=== PATIENT | female | born 1995 | race Caucasian/White ===

== ENCOUNTER 2024-10-28 16:06 | Emergency (ER) | payer OTHER, SELFPAY ==
--- NOTE | 2024-10-28 16:12 | DI.RAD.S_ITS ---
PROCEDURE: XR CHEST 1V INDICATIONS: chest pain TECHNIQUE: One view of the chest was acquired. COMPARISON: None. FINDINGS: Surgical changes and devices: None. Lungs and pleura: Lungs are clear. No pleural effusions or pneumothorax. Mediastinum: Mediastinal contours appear normal. Heart size is normal. Bones and chest wall: No suspicious bony lesions. Overlying soft tissues appear unremarkable. IMPRESSION: No acute cardiopulmonary abnormality is seen. Dictated by: Paul Jordan M.D. on 10/28/2024 at 16:55 Approved by: Paul oJrdan M.D. on 10/28/2024 at 16:56
--- NOTE | 2024-10-28 16:17 | ED_ITS ---
HPI - General Adult <Ashley Workman MD - Last Filed: 11/01/24 07:18> General Chief complaint: Chest Pain Stated complaint: back and chest px Time Seen by Provider: 10/28/24 16:17 History of Present Illness HPI narrative: 29-year-old woman with a history of thyroiditis for which she is on Levothyroid presents with multiple concerns including weakness, syncopal episodes, recurrent episodes of vertigo, persistent adenopathy cervical inguinal and on physical exam today axillary left greater than right. She describes up to 10 lb of fluctuation in weight both up and down over the last number of months. Currently does not use hormonal control is on approximately day 14 of her cycle, she and her use condoms. She notes that she has been more fatigued she complains of dry lips and recently was noticing splint or hemorrhages in her fingers and toes. She saw a manager credit risk who evaluated the splinter hemorrhages in suggested an ER visit. There is no recreational drug use no history of IV drug use she takes no prescription medications. She does not describe dysuria or bowel changes. Last week she was diagnosed with respiratory syncytial virus and is beginning to notice a slight cough. She complains of pain in the left side of her chest that radiates centrally through to her scapula but seems to be worse with movement and deep breathing. About a week ago with complaints of syncope episodes and vertigo she was given 3 L of fluid and then the following day found that she would gained 13 lb with significant edema which then required Lasix. The fact that an otherwise healthy 29-year-old woman can not easily process 3 L of fluid is somewhat concerning. Other than the recent/current diagnosis of RSV she has not had obvious infectious symptoms recently no recent viruses. She has not noting significant abdominal pain Review of Systems <Ashley Workman MD - Last Filed: 11/01/24 07:18> Review of Systems Narrative: Pertinent positive and negative findings as per HPI Patient History <Ashley Workman MD - Last Filed: 11/01/24 07:18> Medical History Thyroiditis Exam <Ashley Workman MD - Last Filed: 11/01/24 07:18> Initial Vital Signs Initial Vital Signs: Vital Signs Pulse Rate 79 10/28/24 16:35 Blood Pressure 119/80 10/28/24 16:35 Pulse Oximetry 100 10/28/24 16:35 General: Healthy appearing, in no acute distress. Able to give a complete and coherent history. Well-nourished well-developed HEENT: Moist mucous membranes, normal sclera with reactive pupils, Neck: Small lymph node appreciated the right angle of the jaw, firm but nontender, adenopathy in the left axillae, bilateral inguinal adenopathy Respiratory: Lungs are clear to auscultation, no wheezing no rales no rhonchi. Full and symmetrical air movement Cardiac: Regular rate and rhythm no murmurs with careful auscultation Abdomen: Soft, mild tenderness in the epigastrium radiating through back to her scapula. Good bowel tones, no flank pain Skin: Warm and dry, no rashes Neurologic: Grossly neurologically intact with no obvious asymmetries or abnormalities Extremities: No trauma, she does have a distal splinter hemorrhage the left ring finger and some minor nail bed irregularities on a couple other fingers and a toenail. She does not have any other distal sequelae of embolic disease Psych: Cooperative, appropriate insight and affect <Wagner Ruby MD - Last Filed: 10/29/24 05:34> Initial Vital Signs Initial Vital Signs: Vital Signs Pulse Rate 79 10/28/24 16:35 Blood Pressure 119/80 10/28/24 16:35 Pulse Oximetry 100 10/28/24 16:35 Course <Ashley Workman MD - Last Filed: 11/01/24 07:18> Orders Ordered: Discontinued Medications Aspirin (Aspirin 81 Mg Chew Tab) 324 mg PO NOW ONE Stop: 10/28/24 16:13 Last Admin: 10/28/24 16:57 Dose: Not Given Documented By: AI Vital Signs Vital signs: Vital Signs - 8 hr 10/28/24 16:35 10/28/24 16:40 10/28/24 16:43 Temperature 98.5 F Pulse Rate 79 70 80 Respiratory Rate 20 18 Blood Pressure 119/80 115/75 119/80 Pulse Oximetry 100 100 100 Oxygen Delivery Method Room Air 10/28/24 17:00 Temperature Pulse Rate 86 Respiratory Rate 16 Blood Pressure 116/76 Pulse Oximetry 96 Oxygen Delivery Method <Wagner Ruby MD - Last Filed: 10/29/24 05:34> Orders Ordered: Discontinued Medications Aspirin (Aspirin 81 Mg Chew Tab) 324 mg PO NOW ONE Stop: 10/28/24 16:13 Last Admin: 10/28/24 16:57 Dose: Not Given Documented By: HAFSA Vital Signs Vital signs: Vital Signs - 8 hr 10/28/24 16:35 10/28/24 16:40 10/28/24 16:43 Temperature 98.5 F Pulse Rate 79 70 80 Respiratory Rate 20 18 Blood Pressure 119/80 115/75 119/80 Pulse Oximetry 100 100 100 Oxygen Delivery Method Room Air 10/28/24 17:00 Temperature Pulse Rate 86 Respiratory Rate 16 Blood Pressure 116/76 Pulse Oximetry 96 Oxygen Delivery Method Medical Decision Making <Ashley Workman MD - Last Filed: 11/01/24 07:18> Lab Data 10/28/24 16:26 10/28/24 16:26 Labs: Lab Results 10/28/24 Range/Units 16:26 WBC 7.0 (4.5-11.0) X10^3/uL RBC 4.62 (4.0-5.2) X10^6/uL Hgb 13.9 (12.0-16.0) g/dL Hct 40.2 (36-46) % MCV 87.1 (80-100) fL MCH 30.2 (26-34) PG MCHC 34.7 (30-36) % RDW 12.6 (11.6-14.8) % Plt Count 279 (150-400) X10^3/uL Neut % (Auto) 57.5 (50-75) % Lymph % (Auto) 35.3 (25-40) % [place] % (Auto) 5.3 (3-14) % Eos % (Auto) 1.1 L (2-4) % Baso % (Auto) 0.8 (0-2) % Neut # (Auto) 4000 (5592-1808) /uL Lymph # (Auto) 2500 (2932-7724) /uL [place] # (Auto) 400 (0-900) /uL Eos # (Auto) 100 (0-450) /uL Baso # (Auto) 100 (0-100) /uL PT 12.1 (9.4-12.5) SECONDS INR 1.1 (0.9-1.3) APTT 38 H (25.1-36.5) SECONDS Sodium 139 (137-145) mmol/L Potassium 4.2 (3.4-5.1) mmol/L Chloride 103 (98-107) mmol/L Carbon Dioxide 26 (22-32) mmol/L BUN 10 (7-17) mg/dL Creatinine 0.68 (0.52-1.04) mg/dL Estimated GFR > 60 (>60) mL/min BUN/Creatinine Ratio 14.7 (6-22) Glucose 96 (70-100) mg/dL Calcium 9.5 (8.4-10.2) mg/dL Magnesium 1.7 (1.6-2.3) mg/dL Total Bilirubin 0.7 (0.2-1.3) mg/dL AST 42 H (14-36) IU/L ALT 36 H (<35) IU/L Alkaline Phosphatase 48 (38-126) U/L Total Creatine Kinase 57 (30-135) U/L Troponin I < 0.012 (0.01-0.034) ng/mL NT-Pro-B Natriuret Pep < 20 (<125) pg/mL Total Protein 8.2 (6.3-8.2) g/dL Albumin 4.8 (3.5-5.0) g/dL Globulin 3.4 (1.7-4.1) g/dL Albumin/Globulin Ratio 1.4 (1.0-2.8) Lipase 153 (23-300) U/L HIV 1&2 Ab/P24 Ag 4thGn Negative (NEGATIVE) Point of Care Testing Test Results Negative Point of care testing: Point of Care Testing Test Results Negative MDM Narrative Medical decision making narrative: CC: Adenopathy, splinter hemorrhages, central chest pain Complicating co-morbidities: Recently diagnosed with RSV, last week was having significant episodes of weakness, night sweats, vertigo and had 2 syncopal episodes Data collected from: patient Social determinants of health that may influence the patients condition: Patient does live in [place] Medical records reviewed: Medical records is are mostly through [place] I do not have immediate access. She states that she recently had an ultrasound of a cervical lymph node that is suggested that it may be somewhat larger in size but was not obviously pathologic. She was recently diagnosed with Graves disease in his doing well with Synthroid and TSH was slightly elevated but T4 was appropriate last week. She did have a negative urine and did test positive for RSV approximately 4 days ago. Differential considered: Viral symptom, neoplastic process, I doubt HIV, doubt endocarditis doubt cardiomyopathy doubt significant renal or electrolyte abnormalities Exam documented above, pertinent findings include: Patient is alert and appropriate. She does have minor cervical adenopathy right greater than left, mild axillary adenopathy [id number] and bilateral mild groin adenopathy Lab Test results independently reviewed as above. Pertinent findings: CBC is unremarkable with differential appropriate Metabolic panel shows slightly elevated AST and ALT Independently reviewed EKG: EKG shows a rate of 75 no acute ischemia, sinus rhythm Imaging studies independently reviewed: Chest x-ray is unremarkable In long discussion with the patient and with shared decision-making, we have decided to go ahead with a CT scan of the chest abdomen and pelvis because of the adenopathy, night sweats and weight changes Discussion: 29-year-old woman with increasing symptoms for the last 4-5 months. Diagnosed with Konstantin's thyroiditis. Concerned about adenopathy, night sweats but then diagnosed with RSV this week. She will have dramatic episodes of weight increase in decrease. Last week she was having significant vertiginous and syncopal episodes and then had a seemingly inappropriate response with the acute fluid sequestration after a 3 L bolus of fluid in the setting of mild dehydration. She is concerned that she is not being heard in the she does have a more significant underlying diagnosis and points to the fact that she had to argue significantly to finally get to the diagnosis of her Konstantin's thyroiditis. Care is turned over to Dr. Ruby at change of shift. Presumably the CT scan will be unremarkable and patient will be discharged home. If intervention is needed he will assume care and continue to direct the process. This finding is discussed with the patient and she is aware of the care handoff <Wagner Ruby MD - Last Filed: 10/29/24 05:34> Lab Data Labs: Lab Results 10/28/24 Range/Units 16:26 WBC 7.0 (4.5-11.0) X10^3/uL RBC 4.62 (4.0-5.2) X10^6/uL Hgb 13.9 (12.0-16.0) g/dL Hct 40.2 (36-46) % MCV 87.1 (80-100) fL MCH 30.2 (26-34) PG MCHC 34.7 (30-36) % RDW 12.6 (11.6-14.8) % Plt Count 279 (150-400) X10^3/uL Neut % (Auto) 57.5 (50-75) % Lymph % (Auto) 35.3 (25-40) % [place] % (Auto) 5.3 (3-14) % Eos % (Auto) 1.1 L (2-4) % Baso % (Auto) 0.8 (0-2) % Neut # (Auto) 4000 (3770-0916) /uL Lymph # (Auto) 2500 (1477-8336) /uL [place] # (Auto) 400 (0-900) /uL Eos # (Auto) 100 (0-450) /uL Baso # (Auto) 100 (0-100) /uL PT 12.1 (9.4-12.5) SECONDS INR 1.1 (0.9-1.3) APTT 38 H (25.1-36.5) SECONDS Sodium 139 (137-145) mmol/L Potassium 4.2 (3.4-5.1) mmol/L Chloride 103 (98-107) mmol/L Carbon Dioxide 26 (22-32) mmol/L BUN 10 (7-17) mg/dL Creatinine 0.68 (0.52-1.04) mg/dL Estimated GFR > 60 (>60) mL/min BUN/Creatinine Ratio 14.7 (6-22) Glucose 96 (70-100) mg/dL Calcium 9.5 (8.4-10.2) mg/dL Magnesium 1.7 (1.6-2.3) mg/dL Total Bilirubin 0.7 (0.2-1.3) mg/dL AST 42 H (14-36) IU/L ALT 36 H (<35) IU/L Alkaline Phosphatase 48 (38-126) U/L Total Creatine Kinase 57 (30-135) U/L Troponin I < 0.012 (0.01-0.034) ng/mL NT-Pro-B Natriuret Pep < 20 (<125) pg/mL Total Protein 8.2 (6.3-8.2) g/dL Albumin 4.8 (3.5-5.0) g/dL Globulin 3.4 (1.7-4.1) g/dL Albumin/Globulin Ratio 1.4 (1.0-2.8) Lipase 153 (23-300) U/L HIV 1&2 Ab/P24 Ag 4thGn Negative (NEGATIVE) Point of Care Testing Test Results Negative Point of care testing: Point of Care Testing Test Results Negative Imaging Data CT chest abdomen and pelvis with IV contrast: Radiologist's Impression: [address] [address] [address] Scan Report Signed Patient: Marva Barajas MR#: [id number] : 1995 Acct:[id number] Age/Sex: 29 / F Date of Service: 10/28/24 Loc: ED Accession Number: [id number] Procedure: CT chest abd pel w con Ordering Provider: Ashley Workman MD PROCEDURE: CT CHEST ABD PEL W CON INDICATIONS: adenopathy, night sweats, weight changes TECHNIQUE: After the administration of intravenous contrast, 5 mm thick sections acquired from the lung apices to the symphysis. 5 mm coronal and sagittal reformats were performed, with additional 7 mm MIP reformats through the lungs. For radiation dose reduction, the following was used: automated exposure control, adjustment of mA and/or kV according to patient size. COMPARISON: [facility], CR, XR CHEST 1V, 10/28/2024, 16:11. FINDINGS: Image quality: Excellent. CHEST: Lower Neck: No enlarged lymph nodes. Thyroid: No thyroid nodules which require sonographic follow up, per consensus guidelines. Axillae: No enlarged lymph nodes. Chest Wall: Unremarkable. Lungs and Pleura: No pneumothorax or pleural effusions. No consolidation or suspicious nodules. Heart: Heart size is normal. No pericardial effusion. Thoracic Vessels: The aorta and pulmonary arteries demonstrate normal size. Mediastinum and Yamila: No enlarged lymph nodes. Esophagus: No wall thickening. No hiatal hernia. ABDOMEN: Liver: No solid mass. Gallbladder: No radiopaque gallstones or wall thickening. Biliary ducts: No biliary dilation. Pancreas: No ductal dilation. Spleen: Size is within normal limits. Adrenal Glands: No adrenal nodules. Kidneys and Ureters: No hydronephrosis. No solid mass. No complex renal cystic lesion which requires follow up. Stomach and Bowel: Multiple fluid-filled nondilated loops of small bowel are seen throughout the abdomen and pelvis. Mild colonic stool. Appendix is normal. Peritoneum: No abnormal intraperitoneal fluid. No free air. Ventral Wall: No significant ventral hernia. Abdominal Nodes: No retroperitoneal or mesenteric adenopathy by size criteria. Vessels: Aorta and inferior vena cava are normal in size. PELVIS: Pelvic Organs: Anteverted uterus. Bladder: No bladder wall thickening, accounting for underdistention. Pelvic Nodes: No enlarged lymph nodes. Miscellaneous: No inguinal hernias are seen. Bones: No aggressive osseous abnormality. IMPRESSION: Nondistended fluid-filled loops of small bowel throughout the central abdomen is nonspecific but can be seen in setting of enteritis. Otherwise, no acute abnormality identified in the chest, abdomen, or pelvis. Approved by: Brian Ridley M.D. on 10/28/2024 at 18:24 MDM Narrative Medical decision making narrative: CC: Adenopathy, splinter hemorrhages, central chest pain Complicating co-morbidities: Recently diagnosed with RSV, last week was having significant episodes of weakness, night sweats, vertigo and had 2 syncopal episodes Data collected from: patient Social determinants of health that may influence the patients condition: Patient does live in [place] Medical records reviewed: Medical records is are mostly through [place] I do not have immediate access. She states that she recently had an ultrasound of a cervical lymph node that is suggested that it may be somewhat larger in size but was not obviously pathologic. She was recently diagnosed with Graves disease in his doing well with Synthroid and TSH was slightly elevated but T4 was appropriate last week. She did have a negative urine and did test positive for RSV approximately 4 days ago. Differential considered: Viral symptom, neoplastic process, I doubt HIV, doubt endocarditis doubt cardiomyopathy doubt significant renal or electrolyte abnormalities Exam documented above, pertinent findings include: Patient is alert and appropriate. She does have minor cervical adenopathy right greater than left, mild axillary adenopathy [id number] and bilateral mild groin adenopathy Lab Test results independently reviewed as above. Pertinent findings: CBC is unremarkable with differential appropriate Metabolic panel shows slightly elevated AST and ALT Independently reviewed EKG: EKG shows a rate of 75 no acute ischemia, sinus rhythm Imaging studies independently reviewed: Chest x-ray is unremarkable In long discussion with the patient and with shared decision-making, we have decided to go ahead with a CT scan of the chest abdomen and pelvis because of the adenopathy, night sweats and weight changes Discussion: 29-year-old woman with increasing symptoms for the last 4-5 months. Diagnosed with Konstantin's thyroiditis. Concerned about adenopathy, night sweats but then diagnosed with RSV this week. She will have dramatic episodes of weight increase in decrease. Last week she was having significant vertiginous and syncopal episodes and then had a seemingly inappropriate response with the acute fluid sequestration after a 3 L bolus of fluid in the setting of mild dehydration. She is concerned that she is not being heard in the she does have a more significant underlying diagnosis and points to the fact that she had to argue significantly to finally get to the diagnosis of her Konstantin's thyroiditis. Care is turned over to Dr. Ruby at change of shift. Presumably the CT scan will be unremarkable and patient will be discharged home. If intervention is needed he will assume care and continue to direct the process. This finding is discussed with the patient and she is aware of the care handoff 10/28/24Jalen Thompson. Sign-out from Dr. Workman. CT chest abdomen and pelvis pending. 29-year-old female with cervical and axillary lymphadenopathy, had syncopal episode last week, recent diagnosis RSV, Konstantin's thyroiditis diagnosis July 2024, today with screening labs that looked well, elected to have imaging to look for any concerning findings related to adenopathy. CT chest abdomen and pelvis ordered, to be performed. Assumed care. CT chest abdomen and pelvis, no lymphadenopathy, no splenic lesions or neoplastic changes.distended small bowel loops central abdomen consider enteritis, though nonspecific. Patient has no GI symptoms. Copy of the report given to patient. Discharge as planned. Follow up for further evaluation as an outpatient. Patient would like HIV testing, regarding her longstanding lymphadenopathy, no obvious risk factors, order placed to be added to blood work already sent. Patient would like to go home, we will contact patient if it is positive. (late entry: HIV screeing tests negative) Discharge Plan Departure Patient Disposition: Home Clinical Impression: Anterior cervical adenopathy, Inguinal adenopathy, Axillary adenopathy, Night sweats, Unintentional weight change Activity Restrictions/Additional Instructions: Thank you for coming in today Your constellation of symptoms sounds quite frustrating and somewhat frightening. Today I am quite reassured with what we found Your CBC does not show infection, no abnormal red blood cells or white blood cells or suggestion of a blood cancer Your chemistries show normal kidney function and electrolytes. You have minor elevation to your liver studies which is not unexpected in the middle of a viral syndrome such as RSV Chest x-ray was unremarkable, after long discussion we did do a CT scan of your chest abdomen and pelvis. Fortunately, this was normal and there is no sign of obvious pathology including masses, tumors or other life-threatening abnormalities Please continue all of your usual medications. Do follow up with your primary care physician and If you find that you are getting worse or develop any new symptoms, please feel free to return to the emergency department for further evaluation. CT scan chest abdomen and pelvis showed no lymphadenopathy, some nonspecific fluid in the small bowel, no abdominal pain, no cancerous changes, no splenic abnormalities. You requested HIV testing, this is added to your blood that was drawn already earlier today, we will contact you if positive. Follow up for lymphadenopathy issues with your regular provider. Referrals: Miscellaneous,[facility] [Primary Care Provider] - Stand Alone Forms: Patient Portal/API/Survey
--- NOTE | 2024-10-28 16:18 | EKG_ITS ---
[address] [address] Test Date: 2024-10-28 Pat Name: Marva Barajas Department: Room: Gender: Female Route Jumper: KARRI : 1995 Requested By: Order Number: [id number] Reading MD: Miko Soria Measurements Intervals [place] Rate: 73 P: 45 WV: 128 QRS: 36 QRSD: 82 T: 39 QT: 380 QTc: 418 Interpretive Statements Normal sinus rhythm Electronically Signed On 10-31-2024 8:32:12 PDT by Miko Soria
[2024-10-28 16:34] LABS: Add Manual Diff / Slide Review NO; Basophils Absolute Auto 100 /uL (0-100); Basophils Percent Auto 0.8 % (0-2); Eosinophils Absolute Auto 100 /uL (0-450); Eosinophils Percent Auto 1.1 % (2-4); Hematocrit 40.2 % (36-46); Hemoglobin 13.9 g/dL (12.0-16.0); Lymphocytes Absolute Auto 2500 /uL (1100-4500); Lymphocytes Percent Auto 35.3 % (25-40); Mean Corpuscular HGB Conc 34.7 % (30-36); Mean Corpuscular Hemoglobin 30.2 PG (26-34); Mean Corpuscular Volume 87.1 fL (80-100); Monocytes Absolute Auto 400 /uL (0-900); Monocytes Percent Auto 5.3 % (3-14); Neutrophils Absolute Auto 4000 /uL (1500-7000); Neutrophils Percent Auto 57.5 % (50-75); Platelet Count 279 X10^3/uL (150-400); Red Blood Cell Count 4.62 X10^6/uL (4.0-5.2); Red Cell Distribution Width 12.6 % (11.6-14.8)
[2024-10-28 16:35] VITALS: BP 119/80; PULSE 79; O2SAT 100
[2024-10-28 16:40] VITALS: BP 115/75; PULSE 70; RESP 20; O2SAT 100
[2024-10-28 16:41] LABS: INR 1.1 (0.9-1.3); Prothrombin Time 12.1 SECONDS (9.4-12.5)
[2024-10-28 16:43] VITALS: BP 119/80; PULSE 80; RESP 18; TEMP 36.9; O2SAT 100
[2024-10-28 16:44] LABS: PTT Partial Thromboplastin Tim 38 SECONDS (25.1-36.5)
[2024-10-28 16:46] LABS: Alanine Aminotransferase 36 IU/L (<35); Albumin 4.8 g/dL (3.5-5.0); Albumin Globulin Ratio 1.4 (1.0-2.8); Alkaline Phosphatase 48 U/L (38-126); Aspartate Aminotransferase 42 IU/L (14-36); BUN Creatinine Ratio 14.7 (6-22); Bilirubin Total 0.7 mg/dL (0.2-1.3); Blood Urea Nitrogen 10 mg/dL (7-17); Calcium 9.5 mg/dL (8.4-10.2); Carbon Dioxide 26 mmol/L (22-32); Chloride 103 mmol/L (98-107); Creatine Kinase 57 U/L (30-135); Estimated Glomerular Filt Rate > 60 mL/min (>60); Globulin 3.4 g/dL (1.7-4.1); Glucose 96 mg/dL (70-100); HEMOLYSIS 17 (0-50); Lipase 153 U/L (23-300); Magnesium 1.7 mg/dL (1.6-2.3); Potassium 4.2 mmol/L (3.4-5.1); Sodium 139 mmol/L (137-145); Total Protein 8.2 g/dL (6.3-8.2)
[2024-10-28 16:58] LABS: NT-proBNP (BNP-Adult 18+) < 20 pg/mL (<125); Troponin I < 0.012 ng/mL (0.01-0.034)
[2024-10-28 17:00] VITALS: BP 116/76; PULSE 86; RESP 16; O2SAT 96
--- NOTE | 2024-10-28 17:14 | DI.CT.S_ITS ---
PROCEDURE: CT CHEST ABD PEL W CON INDICATIONS: adenopathy, night sweats, weight changes TECHNIQUE: After the administration of intravenous contrast, 5 mm thick sections acquired from the lung apices to the symphysis. 5 mm coronal and sagittal reformats were performed, with additional 7 mm MIP reformats through the lungs. For radiation dose reduction, the following was used: automated exposure control, adjustment of mA and/or kV according to patient size. COMPARISON: [facility], CR, XR CHEST 1V, 10/28/2024, 16:11. FINDINGS: Image quality: Excellent. CHEST: Lower Neck: No enlarged lymph nodes. Thyroid: No thyroid nodules which require sonographic follow up, per consensus guidelines. Axillae: No enlarged lymph nodes. Chest Wall: Unremarkable. Lungs and Pleura: No pneumothorax or pleural effusions. No consolidation or suspicious nodules. Heart: Heart size is normal. No pericardial effusion. Thoracic Vessels: The aorta and pulmonary arteries demonstrate normal size. Mediastinum and Yamila: No enlarged lymph nodes. Esophagus: No wall thickening. No hiatal hernia. ABDOMEN: Liver: No solid mass. Gallbladder: No radiopaque gallstones or wall thickening. Biliary ducts: No biliary dilation. Pancreas: No ductal dilation. Spleen: Size is within normal limits. Adrenal Glands: No adrenal nodules. Kidneys and Ureters: No hydronephrosis. No solid mass. No complex renal cystic lesion which requires follow up. Stomach and Bowel: Multiple fluid-filled nondilated loops of small bowel are seen throughout the abdomen and pelvis. Mild colonic stool. Appendix is normal. Peritoneum: No abnormal intraperitoneal fluid. No free air. Ventral Wall: No significant ventral hernia. Abdominal Nodes: No retroperitoneal or mesenteric adenopathy by size criteria. Vessels: Aorta and inferior vena cava are normal in size. PELVIS: Pelvic Organs: Anteverted uterus. Bladder: No bladder wall thickening, accounting for underdistention. Pelvic Nodes: No enlarged lymph nodes. Miscellaneous: No inguinal hernias are seen. Bones: No aggressive osseous abnormality. IMPRESSION: Nondistended fluid-filled loops of small bowel throughout the central abdomen is nonspecific but can be seen in setting of enteritis. Otherwise, no acute abnormality identified in the chest, abdomen, or pelvis. Approved by: Brian Ridley M.D. on 10/28/2024 at 18:24
[2024-10-28 18:55] VITALS: BP 153/73; PULSE 65; RESP 16; O2SAT 100
[2024-10-28 19:47] LABS: HIV 1 & 2 Ab/Ag 4th Gen Combo NEGATIVE (NEGATIVE)
== END 2024-10-28 18:57 | disposition home or self-care (01) ==
PROVIDERS: Emergency Medicine; Emergency Provider Emergency Medicine
DX: R59.0 Localized enlarged lymph nodes (principal); R61 Generalized hyperhidrosis; R68.89 Other general symptoms and signs; R07.9 Chest pain, unspecified
CPT/HCPCS: 36415; 71045; 71260; 74177; 80053; 81025; 82550; 83690; 83735; 83880; 84484; 85025; 85610; 85730; 87389; 93005; 99283; 99284; Q9967